=== PATIENT | male | born 1975 | race Caucasian/White ===

== ENCOUNTER 2016-10-31 01:51 | Emergency (ER) | payer OTHER ==
[~2016-10-31] VITALS: Ht 180.3 cm; Wt 78.9 kg
[~2016-10-31 01:51] MED LIST: ALLEGRA180 MG PO; ATIVAN0.5 MG PO; ATIVAN1 MG PO; CATAFLAM50 MG PO; CEFZIL250 MG/5 M PO; CIPRO500 MG PO; DOXYCYCLINE MO100 MG PO; HYDROCODONE BIT1 T11 PO; NORCO 325 MG-101 TAB PO; NORFLEX100 MG PO; PREVACID SOLUTA30 MG PO; PROVENTIL0.09 MG/AC IH; REMERON30 MG PO; SUBOXONE 12 MG1 EACH SL; TENORMIN50 MG PO; ULTRAM50 MG PO; VIBRAMYCIN100 MG PO; VICODIN 5/500 505 MG PO; VISTARIL25 M2 PO; VOLTAREN50 M1 PO; ZANTAC 150150 MG PO
[2016-10-31 02:28] LABS: BASO # 0.1 10*3/uL (0.0-0.1); BASO % 0.6 % (0.0-1.0); EOS # 0.3 10*3/uL (0.0-0.4); EOS % 3.4 % (1.0-4.0); HEMATOCRIT 45.1 % (42.0-52.0); HEMOGLOBIN 15.3 g/dl (14.0-18.0); LYMPH # 3.5 10*3/uL (1.3-4.4); LYMPH % 40.7 % (27.0-41.0); MEAN CELL VOLUME 84.9 fl (80.0-94.0); MEAN CORPUSCULAR HGB 28.8 pg (27.0-31.0); MEAN CORPUSCULAR HGB CONC 33.9 g/dl (33.0-37.0); MEAN PLATELET VOLUME 9.5 fl (9.6-12.3); MONO # 0.7 10*3/uL (0.1-1.0); MONO % 8.3 % (3.0-9.0); NEUT % 46.8 % (47.0-73.0); PLATELET COUNT AUTOMATED 249 10*3/uL (130-400); RED BLOOD COUNT 5.31 10*6/uL (4.50-5.90); RED CELL DISTRI WIDTH 13.2 % (0-14.5); WHITE BLOOD COUNT 8.5 10*3/uL (4.8-10.8)
[2016-10-31 02:40] LABS: PROTHROMBIN TIME 10.7 SECONDS (9.0-12.4)
[2016-10-31 02:45] LABS: ALBUMIN 3.6 gm/dl (3.1-4.5); ALKALINE PHOSPHATASE 154 U/L (45-117); BILIRUBIN, TOTAL 0.5 mg/dl (0.2-1.0); BUN 15 mg/dl (7-24); CARBON DIOXIDE 26 mmol/L (21-32); CHLORIDE 105 mmol/L (98-107); EST GLOM FILT AFRICAN AMERICAN > 60 ml/min; GLUCOSE 107 mg/dL (65-99); MAGNESIUM 1.9 mg/dL (1.5-2.1); POTASSIUM 3.8 mmol/L (3.5-5.1); SGOT/AST 64 IU/L (3-35); SGPT/ALT 85 U/L (12-78); SODIUM 138 mmol/L (136-145); TOTAL PROTEIN 8.5 gm/dL (6.4-8.2)
[2016-10-31 02:46] LABS: CKMB < 0.5 ng/ml (0.5-3.6); TROPONIN I < 0.015 ng/ml (<0.045)
[2016-10-31 04:02] LABS: BILIRUBIN NEGATIVE (NEGATIVE); BLOOD NEGATIVE (NEGATIVE); CLARITY CLOUDY (CLEAR); COLOR YELLOW (YELLOW); GLUCOSE NEGATIVE (NEGATIVE); KETONE NEGATIVE (NEGATIVE); LEUKO ESTERASE NEGATIVE (NEGATIVE); NITRITE NEGATIVE (NEGATIVE); PROTEIN TRACE (NEGATIVE); SPECIFIC GRAVITY 1.015 (1.005-1.030)
[2016-10-31 04:09] LABS: BACTERIA 4+; URINE REFLEX COMMENT YES (NO)
[2016-10-31 04:10] LABS: URINE AMPHETAMINES < 1000 (1000ng/ml); URINE BARBITURATES < 200 (200ng/ml); URINE COCAINE > 300 (300ng/ml)
[2016-10-31] MEDS ORDERED: ATIVAN1 MG PO (04:23)
[2016-10-31] MEDS ORDERED: Motrin,Rufen800 MG PO (04:23)
== END 2016-10-31 04:37 | disposition home or self-care (01) ==
LOC: ED 01:51
PROVIDERS: Emergency Medicine Emergency Medical Services
DX: F41.9 Anxiety disorder, unspecified (principal); F19.90 Other psychoactive substance use, unspecified, uncomplicated; F12.10 Cannabis abuse, uncomplicated; F17.200 Nicotine dependence, unspecified, uncomplicated

== ENCOUNTER 2017-10-03 15:39 | Emergency (ER) | payer OTHER ==
[~2017-10-03] VITALS: Ht 154.9 cm; Wt 83.9 kg
[~2017-10-03 15:39] MED LIST changes: +Motrin,Rufen800 MG PO
[2017-10-03] MEDS ORDERED: SUBOXONE 12 MG1 EACH SL (15:42)
[2017-10-03] MEDS ORDERED: Motrin,Rufen800 MG PO (15:43)
[2017-10-03] MEDS ORDERED: AMOXICILLIN500 M2 PO (18:55)
== END 2017-10-03 19:01 | disposition home or self-care (01) ==
LOC: ED 15:39
DX: K04.7 Periapical abscess without sinus (principal); M19.041 Primary osteoarthritis, right hand; Z79.899 Other long term (current) drug therapy